=== PATIENT | female | born 1950 | race Caucasian/White ===

== ENCOUNTER 2019-01-09 09:07 | Emergency (ER) | payer MEDICARE, OTHER ==
[2019-01-09 09:34] VITALS: BP 117/78
--- NOTE | 2019-01-09 10:02 | UC ---
Skin Complaint HPI - HPI Summary HPI Summary: 69 year old female with PMH osteoporosis, HTN, presents with pain to midback since wednesday, showed daugther last night, attempted to "pop" area, no drainage noted. Unsure if bite, no h/o tick bites. lives with daugther, she will be able to follow area. no h/o MRSA, VRE. - History of Current Complaint Chief Complaint: UCSkin Time Seen by Provider: 01/09/19 09:39 Stated Complaint: SKIN CONCERN Hx Obtained From: Patient ?: No Onset/Duration: Sudden Onset Skin Exposure Onset/Duration: Days Ago - unsure of exact time as patient is unable to see area. pain started wednesday Onset Severity: Mild Current Severity: Mild Pain Intensity: 2 Pain Scale Used: 0-10 Numeric Location: Discrete Aggravating Factor(s): Nothing Alleviating Factor(s): Nothing Related History: Insect Bite/Sting - unsure - Allergy/Home Medications Allergies/Adverse Reactions: Allergies Allergy/AdvReac Type Severity Reaction Status Date / Time No Known Allergies Allergy Verified 01/09/19 09:28 Home Medications: Home Medications Alendronate (NF) [Fosamax (NF)] 70 mg PO WE 01/09/19 [History Confirmed 01/09/19 ] Irbesartan (NF) [Avapro (NF)] 150 mg PO DAILY 01/09/19 [History Confirmed ] PMH/Surg Hx/FS Hx/Imm Hx Previously Healthy: Yes - Surgical History Surgical History: Yes Surgery Procedure, Year, and Place: Right TKA, 2015, [place]; Left TKA, 2014, [place]; Hysterectomy, 2011, [place]; Tubal Ligation, 1972, [place]; Appendectomy , ~1957, [place]; Tonsillectomy, ~1954, [place] - Family History Known Family History: Positive: Non-Contributory - Social History Alcohol Use: None Alcohol Amount: MAYBE 1 GLASS/YEAR Substance Use Type: None Smoking Status (MU): Never Smoked Tobacco Have You Smoked in the Last Year: No - Immunization History Most Recent Influenza Vaccination: 04/2015 Most Recent Tetanus Shot: ~11/2018 Most Recent Pneumonia Vaccination: NONE Review of Systems All Other Systems Reviewed And Are Negative: Yes Constitutional: Positive: Negative. Negative: Fever, Chills, Fatigue Skin: Positive: Rash, Bruising - mid abck, thoracic area Neurological: Positive: Negative Is Patient Immunocompromised?: No Physical Exam Triage Information Reviewed: Yes Appearance: Well-Appearing, No Pain Distress, Well-Nourished Vital Signs: Initial Vital Signs Temp 98.7 F 01/09/19 09:23 Pulse 82 01/09/19 09:23 Resp 18 01/09/19 09:23 BP 117/78 01/09/19 09:23 Pulse Ox 96 01/09/19 09:23 Vital Signs Reviewed: Yes Eyes: Positive: Conjunctiva Clear ENT: Positive: Hearing grossly normal Neck: Positive: Supple. Negative: Nuchal Rigidity Respiratory: Positive: No respiratory distress, No accessory muscle use Musculoskeletal Exam: Normal Neurological Exam: Normal Psychological Exam: Normal Skin: Positive: Rashes, Other - over mid thoracic spine ciruclar indurated area , mild tender to palpation, no drainge noted, small opening in center with ecchymosis noted, violacious. no central clearing Course/Dx - Course Course Of Treatment: possible cellulitis vs erythema migrans, tx to cover both etiologies, discussed with patinet, area marked, daughter will follow and return if no improvemnt, worsening. - Differential Diagnoses - Skin Complaint Differential Diagnoses: Cellulitis, Contact Dermatitis - Diagnoses Provider Diagnosis: Cellulitis Discharge - Sign-Out/Discharge Documenting (check all that apply): Patient Departure All imaging exams completed and their final reports reviewed: No Studies - Discharge Plan Condition: Good Disposition: HOME Prescriptions: DOXYcycline CAP(*) [DOXYcycline 100MG CAP(*)] 100 mg PO BID #20 cap Patient Education Materials: Lyme Disease (ED), Cellulitis (DC) Referrals: Fátima Hutchison MD [Primary Care Provider] - Additional Instructions: - ANtibiotics as directed. Same treatment for cellulitis (skin infection) as for lyme prevention - Follow up area- warm compresses as needed to facilitate drainage - No Swimming, soaking, submerging wound. Showering OK - Follow up with primary physician if no improvement within 1-2 days or return for re-evaluation - Billing Disposition and Condition Condition: GOOD Disposition: Home - Attestation Statements Provider Attestation: I was available for consult. This patient was seen by the MIN[facility]. The patient was not presented to, seen by, or examined by me. -Katherine
== END 2019-01-09 10:09 | disposition home or self-care (01) ==
LOC: UCCORT 09:07
DX: L03.312 Cellulitis of back [any part except buttock and flank] (principal); I10 Essential (primary) hypertension; M81.0 Age-related osteoporosis without current pathological fracture; Z79.899 Other long term (current) drug therapy
CPT/HCPCS: 99202; G0463